=== PATIENT | female | born 2000 | race Caucasian/White ===

== ENCOUNTER 2020-10-19 23:27 | Emergency (ER) | payer MEDICAID ==
[2020-10-19 23:55] VITALS: O2SAT 98
--- NOTE | 2020-10-20 00:34 | ERPHSYRPT ---
- History of Present Illness Time Seen by Provider: 10/19/20 23:29 Source: patient Exam Limitations: no limitations Patient Subjective Stated Complaint: Patient states " I was going into my daughters room to get diapers and the floor ahs a dip and I came down to hard in the dip causing me to twist my right foot/ankle". Triage Nursing Assessment: Patient arrived to ED and ambulated back to room without difficulty. Patient Kvng times 4. Patient able to follow instructions without difficulty. Patient right foot/ankle without swelling and bruising. + Pedal pulse noted to right lower extremity. Patient able to wiggle toes without difficulty. Patient able to move right foot side to side without difficulty. Patient feels sensation without difficulty. Patient able to bear weight on right lower extremity without difficulty. Physician History: 20 years old female presented in the ER with chief complaint of right foot and ankle pain after she twisted while walking in the room almost 2 hours ago with dull aching to sharp pain with ambulation/movement and better with resting with minimal swelling around ankle. No injury anywhere else. Method of Injury: twisted Occurred: hours ago (2) Quality: constant, sharpness Severity of Pain-Max: moderate Severity of Pain-Current: mild Lower Extremities Pain: foot: right, ankle: right Modifying Factors: Improves With: immobilization, rest. Worsens With: movement Associated Symptoms: No unable to bear weight, No snapping sensation, No popping sensation Allergies/Adverse Reactions: No Known Drug Allergies Allergy (Unverified 10/19/20 23:55) Hx Tetanus, Diphtheria Vaccination/Date Given: Yes Hx Influenza Vaccination/Date Given: Yes Hx Pneumococcal Vaccination/Date Given: No Immunizations Up to Date: Yes Travel Risk - International Travel Have you traveled outside of the country in past 3 weeks: No If Yes, where;: N - Coronavirus Screening Close contact with a COVID-19 positive Pt in past 14-21 Days: No - Vaccine Status Have you recieved a Covid-19 vaccination: No - Review of Systems Constitutional: No Symptoms Eyes: No Symptoms Ears, Nose, & Throat: No Symptoms Respiratory: No Symptoms Cardiac: No Symptoms Abdominal/Gastrointestinal: No Symptoms Musculoskeletal: Injury Skin: No Symptoms Neurological: No Symptoms Endocrine: No Symptoms Hematologic/Lymphatic: No Symptoms - Past Medical History Pertinent Past Medical History: Yes Neurological History: No Pertinent History ENT History: No Pertinent History Cardiac History: No Pertinent History Respiratory History: No Pertinent History Endocrine Medical History: No Pertinent History Musculoskeletal History: No Pertinent History GI Medical History: No Pertinent History History: No Pertinent History Psycho-Social History: Anxiety, Attention Deficit Disorder, Depression Female Reproductive Disorders: No Pertinent History - Past Surgical History Past Surgical History: Yes Neuro Surgical History: No Pertinent History Cardiac: No Pertinent History Respiratory: No Pertinent History Gastrointestinal: No Pertinent History Genitourinary: No Pertinent History Musculoskeletal: No Pertinent History Female Surgical History: No Pertinent History Other Surgical History: TONSILS - Social History Smoking Status: Former smoker Exposure to second hand smoke: Yes Drug Use: none Patient Lives Alone: No - Female History Hx Now: No - Nursing Vital Signs Nursing Vital Signs: Initial Vital Signs Temperature 98.4 F 10/19/20 23:53 Pulse Rate 69 10/19/20 23:53 Respiratory Rate 18 10/19/20 23:53 Blood Pressure 132/85 10/19/20 23:53 O2 Sat by Pulse Oximetry 98 10/19/20 23:53 Pain Scale Pain Intensity 7 - Physical Exam General Appearance: no apparent distress Neck Exam: normal inspection, full range of motion Cardiovascular/Respiratory Exam: normal breath sounds, regular rate/rhythm Legs Exam: bilateral leg: non-tender, normal inspection, normal range of motion Knees Exam: bilateral knee: non-tender, normal inspection, normal range of motion Ankle Exam: right ankle: bone tenderness, pain, soft tissue tenderness, swelling (Anterior ankle and adjacent foot), left ankle: non-tender, normal inspection, no evidence of injury, bilateral ankle: normal range of motion Foot Exam: right foot: bone tenderness, pain, soft tissue tenderness, swelling Neuro/Tendon Exam: normal sensation, normal motor functions Mental Status Exam: alert, oriented x 3, cooperative Skin Exam: normal color SpO2 Interpretation: normal SpO2: 98 O2 Delivery: Room Air Ordered Tests: Active Orders 24 hr Category Date Time Status ANKLE (3 VIEWS) Stat Exams 10/20/20 00:10 Taken FOOT (MINIMUM 3 VIEWS) Stat Exams 10/20/20 00:10 Taken - Progress Progress: unchanged Progress Note: 10/20/20 00:31 I offered pain medication which she refused. X-rays ruled out obvious fracture dislocation. Placed in [facility]. Outpatient podiatry follow-up. Counseled pt/family regarding: diagnosis, need for follow-up, rad results - Departure Departure Disposition: Home Clinical Impression: Ankle sprain Qualifiers: Encounter type: initial encounter Involved ligament of ankle: unspecified ligament Laterality: right Qualified Code(s): S93.401A - Sprain of unspecified ligament of right ankle, initial encounter Condition: Stable Critical Care Time: No Referrals: DASIA LEUNG MD [Primary Care Provider] - Follow Up with PCP/3 days JEFRY MICHEL DPM [ACTIVE STAFF] - (Call tomorrow for appointment) Instructions: Foot Sprain (DC), Ankle Sprain (DC) Additional Instructions: Take Tylenol/ibuprofen as needed for pain. Keep it elevated. Weightbearing as tolerated. Follow-up with podiatry for reevaluation. Return to ER for wor sening pain or difficulty weightbearing. Prescriptions: Ibuprofen 600 mg PO Q6HPRN PRN 10 Days #20 tablet PRN Reason: Pain
[2020-10-20 00:52] VITALS: BP 120/78; PULSE 77
--- NOTE | 2020-10-20 08:52 | XRAY ---
Indication: Pain following twisting injury. Comparison: None 3 portable views right ankle obtained. No bony, articular, or soft tissue abnormalities.
--- NOTE | 2020-10-20 09:02 | XRAY ---
Indication: Pain following twisting injury. Comparison: None 3 nonweightbearing portable views right foot obtained. No bony, articular, or soft tissue abnormalities.
== END 2020-10-20 00:45 | disposition home or self-care (01) ==
LOC: ED 23:27
DX: S93.401A Sprain of unspecified ligament of right ankle, initial encounter (principal); X50.1XXA Overexertion from prolonged static or awkward postures, initial encounter; Y93.89 Activity, other specified; Y92.89 Other specified places as the place of occurrence of the external cause
CPT/HCPCS: 73610; 73630; 99284; L4386